=== PATIENT | female | born 1955 | race Caucasian/White ===

== ENCOUNTER 2024-10-27 06:26 | Day surgery (SDC) | payer OTHER ==
[2024-10-24 11:47] VITALS: BMI 28.5
[2024-10-27] MEDS ORDERED: ISOSULFAN BLUE 50 MG/5 ML VIAL SQ ONE (07:17)
[2024-10-27] MEDS ORDERED: LIDOCAINE HCL 1%, 10 MG/ML (20ML VIAL) ONE (07:17)
[2024-10-27] MEDS: ceFAZolin SODIUM 1 GM VIAL IVPB ONE (08:20)
[2024-10-27] MEDS ORDERED: ONDANSETRON 4 MG/2 ML VIAL IVPUSH PRN (10:28)
[2024-10-27] MEDS ORDERED: oxyCODONE HCL 5 MG TABLET PO PRN (10:42)
[2024-10-27] MEDS: LACTATED RINGERS SOLUTION 1,000 ML IV SCH (11:25)
[2024-10-27] MEDS: ACETAMINOPHEN 500 MG TABLET (FP) PO SCH (12:30)
[2024-10-27] MEDS: oxyCODONE HCL 5 MG TABLET PO PRN (15:47)
[2024-10-27] MEDS: INSULIN (NOVOLOG) ASPART 100 UNITS/ML 10ML VIAL SQ SCH ×2 (17:30→18:23)
[2024-10-27] MEDS ORDERED: INSULIN ASPART SLIDING SCALE (NOVOLOG) 1 VIAL SQ ONE (17:51)
[2024-10-27 19:20] VITALS: RESP 18
[2024-10-27] MEDS ORDERED: INSULIN ASPART SLIDING SCALE (NOVOLOG) 1 VIAL SQ SCH (22:00)
[2024-10-28 07:10] VITALS: TEMP 98.2
[2024-10-28 08:13] LABS: HEMATOCRIT 32.6 % (34.1-44.9); HEMOGLOBIN 10.2 g/dL (11.2-15.7); MCHC 31.3 g/dl (32.2-35.5); MEAN CELL VOLUME 98.8 fl (79.4-94.8); MEAN PLT VOLUME 11.5 fl (9.4-12.3); PLATELET COUNT 188 x10^3/uL (182-369); RDW 13.2 % (12.4-16.4)
[2024-10-28 08:43] LABS: POTASSIUM 4.1 mmol/L (3.5-5.1)
[2024-10-28 08:56] LABS: CALCIUM 9.7 mg/dL (8.5-10.1)
[2024-10-28 08:57] LABS: ALBUMIN 3.2 g/dl (3.4-5.0); BLOOD UREA NITROGEN 17.4 mg/dL (7-18)
[2024-10-28 09:00] VITALS: BP 126/50; PULSE 66
[2024-10-28 09:00] LABS: CREATININE 0.8 mg/dL (0.55-1.3)
[2024-10-28 09:01] LABS: BILIRUBIN,TOTAL 0.5 mg/dL (0.2-1); TOT PROT 5.8 g/dl (6.4-8.2)
[2024-10-28] MEDS: LOSARTAN POTASSIUM 50 MG TABLET PO SCH (09:44)
[2024-10-28] MEDS: amLODIPine BESYLATE 5 MG TABLET (FP) PO SCH (09:44)
[2024-10-28] MEDS ORDERED: LOSARTAN POTASSIUM 50 MG TABLET PO SCH (10:00)
[2024-10-28] MEDS ORDERED: amLODIPine BESYLATE 5 MG TABLET (FP) PO SCH (10:00)
== END 2024-10-28 11:41 | disposition home or self-care (01) ==
LOC: JASU-SURG 06:26 → JASUSAT 06:26 → SUATTDRO 06:26 → J8W 11:48 → JASUSAT 10-28 11:41
PROVIDERS: ATTEND Nurse Practitioner Family
PROC: 0HTT0ZZ Resection of Right Breast, Open Approach (ICD-10-PCS; principal; 2024-10-27 08:00)
DX: C50.911 Malignant neoplasm of unspecified site of right female breast (principal)
CPT/HCPCS: 36415; 80053; 82962; 83735; 85027; 86850; 86900; 86901; 88307-TC; 88309-TC; 88342-TC; 94010; 94760; J0131